=== PATIENT | female | born 1965 | race Caucasian/White ===

== ENCOUNTER → 2017-03-05 00:12 | Emergency (ER) | payer OTHER ==
[~2017-03-05 00:12] MED LIST: guaiFENesin LIQ* 100 MG/5 ML UDC PO ONE
[2017-03-05 00:42] LABS: Hematocrit 42 % (35-47); Hemoglobin 14.2 g/dl (12.0-16.0); Mean Corpuscular HGB Conc 34 g/dl (31-36); Mean Corpuscular Hemoglobin 30 pg (27-31); Mean Corpuscular Volume 87 fL (80-97); Mean Platelet Volume 8 um3 (7.4-10.4); Red Cell Distribution Width 13 % (10.5-15); White Blood Count 14.4 10^3/ul (3.5-10.8)
[2017-03-05 00:49] LABS: Add Diff/Slide Review? Slide Review Added; Comments Flag Yes
[2017-03-05 01:01] LABS: Albumin 4.3 g/dL (3.2-5.2); BUN/Creatinine Ratio 17.1 (8-20); Calcium 9.8 mg/dL (8.6-10.3); EGFR African American 102.4 (>60); EGFR Non-African American 79.6 (>60); Globulin 3.5 g/dL (2-4); Total Bilirubin 0.4 mg/dL (0.2-1.0); Total Protein 7.8 g/dL (6.4-8.9)
[2017-03-05 01:02] LABS: Potassium 4.2 mmol/L (3.5-5.0)
--- NOTE | 2017-03-05 01:48 | ED ---
Kirill Olivera Erika, scribed for Andres Banegas MD on 03/05/17 at 0039 . Shortness of Breath - HPI Summary HPI Summary: Patient is a 52-year-old female presenting to the ED with a CC of SOB. Patient reports she had some difficulty breathing last night, which subsided. This evening, SOB returned, and has been worsening and constant since. Patient also reports a cough. Symptoms were not alleviated by inhaler. She states recent shoulder surgery. Hx HTN, thyroid nodules. - History of Current Complaint Chief Complaint: EDShortnessOfBreath Time Seen by Provider: 03/05/17 00:18 Hx Obtained From: Patient Onset/Duration: Gradual Onset, Lasting Hours, Still Present Timing: Constant Current Severity: Moderate Dyspnea At: Rest Alleviating Factors: Nothing Associated Signs & Symptoms: Cough (Nonproductive) - Allergy/Home Medications Allergies/Adverse Reactions: Allergies Allergy/AdvReac Type Severity Reaction Status Date / Time Latex Allergy Severe RASH, Verified 08/29/16 10:36 SWELLING BERRIES Allergy Severe RASH, Uncoded 08/29/16 10:36 SWELLING, THROAT SWELLING PMH/Surg Hx/FS Hx/Imm Hx Endocrine/Hematology History: Reports: Hx Thyroid Disease Denies: Hx Diabetes Cardiovascular History: Reports: Hx Hypertension Respiratory History: Denies: Hx Asthma, Hx Chronic Obstructive Pulmonary Disease (COPD) GI History: Denies: Hx Ulcer - Cancer History Cancer Type, Location and Year: squamous cell skin cancer - Surgical History Surgery Procedure, Year, and Place: BLADDER SLING Infectious Disease History: Denies: Hx Hepatitis, Hx Human Immunodeficiency Virus (HIV) - Family History Known Family History: Positive: Hypertension - Social History Alcohol Use: Occasionally Hx Substance Use: No Substance Use Type: Reports: None Hx Tobacco Use: Yes Smoking Status (MU): Former Smoker Type: Cigarettes Amount Used/How Often: 7 CIG/DAY Review of Systems Negative: Fever Positive: Shortness Of Breath, Cough All Other Systems Reviewed And Are Negative: Yes Physical Exam Triage Information Reviewed: Yes Vital Signs On Initial Exam: Initial Vital Signs Temp 97.3 F 03/05/17 00:21 Pulse 115 03/05/17 00:21 Resp 30 03/05/17 00:21 BP 151/101 03/05/17 00:21 Pulse Ox 97 03/05/17 00:21 Vital Signs Reviewed: Yes Appearance: Positive: Well-Appearing, No Pain Distress Skin: Positive: Warm Head/Face: Positive: Normal Head/Face Inspection Eyes: Positive: EOMI, SHARI ENT: Positive: Hearing grossly normal, Pharynx normal Neck: Positive: Supple Respiratory/Lung Sounds: Positive: Clear to Auscultation, Breath Sounds Present Cardiovascular: Positive: RRR Abdomen Description: Positive: Nontender, Soft Bowel Sounds: Positive: Present Musculoskeletal: Positive: Strength/ROM Intact Neurological: Positive: Alert, Oriented to Person Place, Time, Normal Gait Psychiatric: Positive: Anxious Diagnostics - Vital Signs Vital Signs Temp Pulse Resp BP Pulse Ox 03/05/17 00:37 97.3 F 115 30 151/101 97 03/05/17 00:21 97.3 F 115 30 151/101 97 - Laboratory Lab Results: Lab Results 03/05/17 03/05/17 03/05/17 Range/Units 00:30 00:30 00:30 WBC 14.4 H (3.5-10.8) 10^3/ul RBC 4.80 (4.0-5.4) 10^6/ul Hgb 14.2 (12.0-16.0) g/dl Hct 42 (35-47) % MCV 87 (80-97) fL MCH 30 (27-31) pg MCHC 34 (31-36) g/dl RDW 13 (10.5-15) % Plt Count 305 (150-450) 10^3/ul MPV 8 (7.4-10.4) um3 Neut % (Auto) 50.3 (38-83) % Lymph % (Auto) 38.8 (25-47) % [place] % (Auto) 7.9 (1-9) % Eos % (Auto) 2.3 (0-6) % Baso % (Auto) 0.7 (0-2) % Absolute Neuts (auto) 7.2 (1.5-7.7) 10^3/ul Absolute Lymphs (auto) 5.6 H (1.0-4.8) 10^3/ul Absolute Monos (auto) 1.1 H (0-0.8) 10^3/ul Absolute Eos (auto) 0.3 (0-0.6) 10^3/ul Absolute Basos (auto) 0.1 (0-0.2) 10^3/ul Absolute Nucleated RBC 0.02 10^3/ul Nucleated RBC % 0.1 Hem Pathologist Commnt Pending D-Dimer, Quantitative < 200 (Less Than 230) ng/mL Sodium 136 (133-145) mmol/L Potassium 4.2 (3.5-5.0) mmol/L Chloride 102 (101-111) mmol/L Carbon Dioxide 25 (22-32) mmol/L Anion Gap 9 (2-11) mmol/L BUN 13 (6-24) mg/dL Creatinine 0.76 (0.51-0.95) mg/dL Est GFR ( Amer) 102.4 (>60) Est GFR (Non-Af Amer) 79.6 (>60) BUN/Creatinine Ratio 17.1 (8-20) Glucose 107 H (70-100) mg/dL Lactic Acid (0.5-2.0) mmol/L Calcium 9.8 (8.6-10.3) mg/dL Total Bilirubin 0.40 (0.2-1.0) mg/dL AST 26 (13-39) U/L ALT 25 (7-52) U/L Alkaline Phosphatase 64 (34-104) U/L Total Protein 7.8 (6.4-8.9) g/dL Albumin 4.3 (3.2-5.2) g/dL Globulin 3.5 (2-4) g/dL Albumin/Globulin Ratio 1.2 (1-3) 05/30/17 Range/Units 00:30 WBC (3.5-10.8) 10^3/ul RBC (4.0-5.4) 10^6/ul Hgb (12.0-16.0) g/dl Hct (35-47) % MCV (80-97) fL MCH (27-31) pg MCHC (31-36) g/dl RDW (10.5-15) % Plt Count (150-450) 10^3/ul MPV (7.4-10.4) um3 Neut % (Auto) (38-83) % Lymph % (Auto) (25-47) % [place] % (Auto) (1-9) % Eos % (Auto) (0-6) % Baso % (Auto) (0-2) % Absolute Neuts (auto) (1.5-7.7) 10^3/ul Absolute Lymphs (auto) (1.0-4.8) 10^3/ul Absolute Monos (auto) (0-0.8) 10^3/ul Absolute Eos (auto) (0-0.6) 10^3/ul Absolute Basos (auto) (0-0.2) 10^3/ul Absolute Nucleated RBC 10^3/ul Nucleated RBC % Hem Pathologist Commnt D-Dimer, Quantitative (Less Than 230) ng/mL Sodium (133-145) mmol/L Potassium (3.5-5.0) mmol/L Chloride (101-111) mmol/L Carbon Dioxide (22-32) mmol/L Anion Gap (2-11) mmol/L BUN (6-24) mg/dL Creatinine (0.51-0.95) mg/dL Est GFR ( Amer) (>60) Est GFR (Non-Af Amer) (>60) BUN/Creatinine Ratio (8-20) Glucose (70-100) mg/dL Lactic Acid 2.1 H* (0.5-2.0) mmol/L Calcium (8.6-10.3) mg/dL Total Bilirubin (0.2-1.0) mg/dL AST (13-39) U/L ALT (7-52) U/L Alkaline Phosphatase (34-104) U/L Total Protein (6.4-8.9) g/dL Albumin (3.2-5.2) g/dL Globulin (2-4) g/dL Albumin/Globulin Ratio (1-3) Result Diagrams: 03/05/17 00:30 03/05/17 00:30 Lab Statement: Any lab studies that have been ordered have been reviewed, and results considered in the medical decision making process. - Radiology CXR Xray Interpretation: No Acute Changes Radiology Interpretation Completed By: ED Physician - EKG 00:23 Cardiac Rate: Tachycardia - at 102 bpm EKG Rhythm: Sinus Tachycardia Re-Evaluation - Re-Evaluation First Eval Re-Evaluation Time: 02:31 Comment: Pt was road tested and O2 sat was 99-100. Discussed results with patient. Pt will be discharged Course/Dx - Course Assessment/Plan: A 52 y/o F presents to the ED with a CC of cough and SOB. Pt's O2 sat is 97% on arrival. Lab work obtained, D dimer <200. EKG shows sinus tachycardia. CXR shows no acute disease. Patient is observed in the ED. She is then road tested and has an O2 sat of 99-100% in road test. On re-evaluation, pt requests medication for the cough, so is prescribed robitussin. Pt is discharged home with follow up from her PCP. - Diagnoses Provider Diagnoses: URI (upper respiratory infection) Discharge - Discharge Plan Condition: Stable Disposition: HOME Prescriptions: guaiFENesin LIQ* [Robitussin*] 10 ml PO Q4H #10 [facility] [place] Patient Education Materials: Dyspnea (ED) Referrals: Олег Taylor MD [Primary Care Provider] - 2 Days Additional Instructions: Please follow up with your PCP The documentation as recorded by the Kirill mccoy Erika accurately reflects the service I personally performed and the decisions made by me, Andres Banegas MD.
[2017-03-05 02:54] VITALS: BP 147/65
--- NOTE | 2017-03-05 07:49 | RAD ---
INDICATION: Shortness of breath. COMPARISON: Comparison is made with a prior chest x-ray study from January 11, 2012. TECHNIQUE: Dual-energy PA and lateral views of the chest were obtained. FINDINGS: The heart is within normal limits in size. Mediastinal and hilar contours appear within normal limits. The lungs are clear. No pleural effusion is present. IMPRESSION: NO EVIDENCE FOR ACTIVE CARDIOPULMONARY DISEASE.
== END | disposition home or self-care (01) ==
LOC: ED 00:12
DX: J06.9 Acute upper respiratory infection, unspecified (principal); R06.02 Shortness of breath; R05 Cough; Z87.891 Personal history of nicotine dependence
CPT/HCPCS: 36415; 71020; 80053; 83605; 85025; 85060; 85379; 93005; 99282; A9270-GY

== ENCOUNTER 2018-02-22 17:01 | Emergency (ER) | payer OTHER ==
[2018-02-22 18:03] LABS: ABS Basophils 0.1 10^3/ul (0-0.2); ABS Eosinophils 0.2 10^3/ul (0-0.6); ABS Lymphocytes 4.3 10^3/ul (1.0-4.8); ABS Monocytes 0.9 10^3/ul (0-0.8); ABS Neutrophils 7.8 10^3/ul (1.5-7.7); ABS Nucleated RBC 0 10^3/ul; Eosinophil % 1.6 % (0-6); Hematocrit 42 % (35-47); Hemoglobin 14.6 g/dl (12.0-16.0); Lymphocyte % 32.2 % (25-47); Mean Corpuscular HGB Conc 35 g/dl (31-36); Mean Corpuscular Hemoglobin 30 pg (27-31); Mean Corpuscular Volume 88 fL (80-97); Mean Platelet Volume 8.1 um3 (7.4-10.4); Nucleated Red Blood Cells % 0.1; Platelet Count 345 10^3/ul (150-450); Red Cell Distribution Width 14 % (10.5-15); White Blood Count 13.2 10^3/ul (3.5-10.8)
[2018-02-22 18:15] LABS: EGFR Non-African American 73.7 (>60)
--- NOTE | 2018-02-22 18:40 | RAD ---
HISTORY: Chest wall pain, difficulty breathing COMPARISONS: March 05, 2017 VIEWS: 6, Frontal view of the chest with frontal and oblique views of the left hemithorax FINDINGS: There is no displaced rib fracture or pneumothorax. The visualized lungs are clear. IMPRESSION: NO DISPLACED RIB FRACTURE OR PNEUMOTHORAX.
[2018-02-22] MEDS ORDERED: Ketorolac INJ* 30 MG/ML 1 ML VIAL IV PUSH ONE (20:17)
--- NOTE | 2018-02-22 20:51 | RAD ---
HISTORY: Right-sided flank pain and chest wall pain COMPARISONS: CT chest dated December 19, 2014 TECHNIQUE: Multiple contiguous axial CT scans were obtained of the chest, abdomen, and pelvis, without intravenous contrast enhancement. Coronal and sagittal multiplanar reformations are submitted for review.. Oral contrast was not administered. FINDINGS: The study is limited by the lack of intravenous contrast. This limits evaluation of the solid organs and vasculature. CHEST NECK AND THYROID: The thyroid is heterogeneous with a 3.1 cm nodule of the left lower thyroid. This is similar to the 2015 examination CHEST WALL: There is no lower cervical, axillary, or supraclavicular lymphadenopathy by size criteria. HEART AND PERICARDIUM: The heart is unremarkable. AORTA AND PULMONARY VASCULATURE: The aorta and pulmonary vasculature are normal. MEDIASTINUM: There is no mediastinal lymphadenopathy by size criteria. CHUY: There is no hilar lymphadenopathy by size criteria. AIRWAY AND ESOPHAGUS: The airway is unremarkable, without endobronchial filling defect. The esophagus is grossly normal. LUNG PARENCHYMA: The lungs are clear. PLEURA: No pleural abnormalities are noted. BONES AND SOFT TISSUES: No bone or soft tissue abnormalities are noted. ABDOMEN/PELVIS: LIVER: The liver is normal in shape, size, contour, and attenuation. BILE DUCTS: There is no intrahepatic or extrahepatic biliary dilatation. GALLBLADDER: The gallbladder is normal, without pericholecystic inflammatory change. PANCREAS: The pancreas is normal, without mass or ductal dilatation. SPLEEN: Normal in size and appearance. UPPER GI TRACT: Evaluation of the gastrointestinal tract is limited by incomplete gastric distention. The upper GI tract is unremarkable. SMALL BOWEL & MESENTERY: The small bowel is normal in contour, course, and caliber. There is no obstruction or dilatation. COLON: The colon is normal in contour, course, caliber. There is no pericolonic inflammatory change. ADRENALS: Normal bilaterally. KIDNEYS: The kidneys are normal in shape, size, contour, and axis. There is no hydronephrosis or nephrolithiasis. BLADDER: The bladder is smooth in contour. PELVIC ORGANS: The uterus and adnexa are grossly normal for technique. AORTA: There is calcific atherosclerotic disease of the abdominal aorta and its branches, without aneurysmal dilatation IVC: Unremarkable LYMPH NODES: There is no lymphadenopathy by size criteria. ABDOMINAL WALL: There is no evidence for abdominal wall hernia. BONES AND SOFT TISSUES: Degenerative changes are noted most pronounced at L5-S1 OTHER: None IMPRESSION: 1. ATHEROSCLEROSIS. 2. MULTINODULAR GOITER. 3. NO HYDRONEPHROSIS OR NEPHROLITHIASIS. 4. NO ACUTE NONCONTRAST CT PATHOLOGY OF THE CHEST, ABDOMEN, OR PELVIS.
[2018-02-22] MEDS ORDERED: Ondansetron ODT TAB* 4 MG ONE (21:22)
[2018-02-22] MEDS ORDERED: Ondansetron INJ* 2 MG/ML VIAL IV ONE (21:23)
[2018-02-22 21:57] LABS: Urine Appearance Clear; Urine Blood 1+ (Negative); Urine Color Yellow; Urine Ketones Negative (Negative); Urine Protein Negative (Negative); Urine Urobilinogen Negative (Negative)
[2018-02-22 22:25] VITALS: BP 132/74
--- NOTE | 2018-02-22 22:32 | ED ---
Mathew Olivera Jennifer, scribed for Keagan Cruz MD on 02/22/18 at 1735 . Complex/Multi-Sys Presentation - HPI Summary HPI Summary: The patient is a 53 year old female who presents with vomiting, nausea, shortness of breath, and vaginal bleeding beginning two days ago. The patient reports it began with vomiting two nights ago. Yesterday, she developed nausea, bloating, lightheadedness, severe back left rib pain, and shortness of breath. The patient states that coughing and deep breaths worsen the rib pain. She then reports she experiences vaginal bleeding this morning and has lost seven pounds this last week. The patients head and throat hurts from the vomiting. She describes the rib pain as a shooting pain that feels heavy from the left rib to the spine but denies radiation of pain. Patient denies hematuria, swelling or redness of the legs, and any falls. - History Of Current Complaint Chief Complaint: EDShortnessOfBreath Hx Obtained From: Patient Onset/Duration: Sudden Onset, Lasting Days - two days ago Timing: Constant Severity Currently: Moderate Severity Initially: Moderate Character: Sharp - shooting/heavy Aggravating Factor(s): coughing, deep breaths Alleviating Factor(s): None Associated Signs And Symptoms: Positive: Other - vomiting, nausea, SOB, vaginal bleeding, bloating, lightheadedness, left back rib pain, weight loss, head pain , throat pain. NEGATIVE: hematuria, swelling or redness of the legs, falls. - Allergies/Home Medications Allergies/Adverse Reactions: Allergies Allergy/AdvReac Type Severity Reaction Status Date / Time latex Allergy Rash Verified 02/22/18 17:02 peanut Allergy Hives Verified 02/22/18 17:28 BERRIES Allergy Severe RASH, Uncoded 02/22/18 17:02 SWELLING, THROAT SWELLING cantoloupe Allergy Anaphylatic Uncoded 02/22/18 17:28 Shock mayonnaise Allergy Anaphylatic Uncoded 02/22/18 17:26 Shock PMH/Surg Hx/FS Hx/Imm Hx Endocrine/Hematology History: Reports: Hx Thyroid Disease Denies: Hx Diabetes Cardiovascular History: Reports: Hx Hypertension Respiratory History: Denies: Hx Asthma, Hx Chronic Obstructive Pulmonary Disease (COPD) GI History: Denies: Hx Ulcer - Cancer History Cancer Type, Location and Year: squamous cell skin cancer - Surgical History Surgery Procedure, Year, and Place: BLADDER SLING - Immunization History Immunizations Up to Date: Yes Infectious Disease History: No Infectious Disease History: Denies: Hx Hepatitis, Hx Human Immunodeficiency Virus (HIV), Traveled Outside the [place] in Last 30 Days - Family History Known Family History: Positive: Hypertension - Social History Alcohol Use: Occasionally Hx Substance Use: No Substance Use Type: Reports: None Hx Tobacco Use: Yes Smoking Status (MU): Former Smoker - Quit two years ago Type: Cigarettes Amount Used/How Often: 7 CIG/DAY Review of Systems Positive: Other - Recent weight loss Positive: Sore Throat Positive: Shortness Of Breath, Cough Positive: Vomiting, Nausea, Other - Bloating Genitourinary: Other - Vaginal bleeding Negative: hematuria Musculoskeletal: Other - Left back rib pain Negative: Edema Neurological: Negative - Falls, Other - Lightheadedness Positive: Headache All Other Systems Reviewed And Are Negative: Yes Physical Exam - Summary Physical Exam Summary: Appearance: Well-appearing, Well-nourished Skin: Warm, Non dermatomal pattern. Eyes: Normal ENT: Normal Neck: Supple, nontender Respiratory: Clear to auscultation, good breath sounds on both sides. No crepitus. Cardiovascular: Normal S1, S2. No murmurs. Normal distal pulses in tibial and radial bilaterally. Abdomen: Soft, nontender Musculoskeletal: Exquisite tenderness to palpation of left posterior rib cage. Strength/ROM Intact Neurological: Normal, A&Ox3 Psychiatric: Normal General: No acute distress Triage Information Reviewed: Yes Vital Signs On Initial Exam: Initial Vitals Temp Pulse Resp BP Pulse Ox 98.6 F 85 22 156/95 96 02/22/18 17:05 02/22/18 17:05 02/22/18 17:05 02/22/18 17:05 02/22/18 17:05 Vital Signs Reviewed: Yes Diagnostics - Vital Signs Vital Signs Temp Pulse Resp BP Pulse Ox 02/22/18 17:05 98.6 F 85 22 156/95 96 - Laboratory Lab Results: Lab Results 02/22/18 02/22/18 02/22/18 Range/Units 17:49 17:49 17:49 WBC 13.2 H (3.5-10.8) 10^3/ul RBC 4.80 (4.0-5.4) 10^6/ul Hgb 14.6 (12.0-16.0) g/dl Hct 42 (35-47) % MCV 88 (80-97) fL MCH 30 (27-31) pg MCHC 35 (31-36) g/dl RDW 14 (10.5-15) % Plt Count 345 (150-450) 10^3/ul MPV 8.1 (7.4-10.4) um3 Neut % (Auto) 59.1 (38-83) % Lymph % (Auto) 32.2 (25-47) % [place] % (Auto) 6.6 (0-7) % Eos % (Auto) 1.6 (0-6) % Baso % (Auto) 0.5 (0-2) % Absolute Neuts (auto) 7.8 H (1.5-7.7) 10^3/ul Absolute Lymphs (auto) 4.3 (1.0-4.8) 10^3/ul Absolute Monos (auto) 0.9 H (0-0.8) 10^3/ul Absolute Eos (auto) 0.2 (0-0.6) 10^3/ul Absolute Basos (auto) 0.1 (0-0.2) 10^3/ul Absolute Nucleated RBC 0 10^3/ul Nucleated RBC % 0.1 D-Dimer, Quantitative (Less Than 230) ng/mL Sodium 136 L (139-145) mmol/L Potassium 5.0 (3.5-5.0) mmol/L Chloride 101 (101-111) mmol/L Carbon Dioxide 28 (22-32) mmol/L Anion Gap 7 (2-11) mmol/L BUN 17 (6-24) mg/dL Creatinine 0.81 (0.51-0.95) mg/dL Est GFR ( Amer) 94.8 (>60) Est GFR (Non-Af Amer) 73.7 (>60) BUN/Creatinine Ratio 21.0 H (8-20) Glucose 115 H (70-100) mg/dL Lactic Acid 0.9 (0.5-2.0) mmol/L Calcium 9.3 (8.6-10.3) mg/dL Magnesium 2.3 (1.9-2.7) mg/dL Total Bilirubin 0.30 (0.2-1.0) mg/dL AST 18 (13-39) U/L ALT 16 (7-52) U/L Alkaline Phosphatase 86 (34-104) U/L Troponin I 0.00 (<0.04) ng/mL Total Protein 8.1 (6.4-8.9) g/dL Albumin 4.4 (3.2-5.2) g/dL Globulin 3.7 (2-4) g/dL Albumin/Globulin Ratio 1.2 (1-3) Beta HCG, Quant 6.63 mIU/mL Urine Color Urine Appearance Urine pH (5-9) Ur Specific [place] (1.010-1.030) Urine Protein (Negative) Urine Ketones (Negative) Urine Blood (Negative) Urine Nitrate (Negative) Urine Bilirubin (Negative) Urine Urobilinogen (Negative) Ur Leukocyte Esterase (Negative) Urine WBC (Auto) (Absent) Urine RBC (Auto) (Absent) Ur Squamous Epith Cells (Absent) Urine Bacteria (Absent) Urine Glucose (Negative) 02/22/18 02/22/18 Range/Units 17:49 21:27 WBC (3.5-10.8) 10^3/ul RBC (4.0-5.4) 10^6/ul Hgb (12.0-16.0) g/dl Hct (35-47) % MCV (80-97) fL MCH (27-31) pg MCHC (31-36) g/dl RDW (10.5-15) % Plt Count (150-450) 10^3/ul MPV (7.4-10.4) um3 Neut % (Auto) (38-83) % Lymph % (Auto) (25-47) % [place] % (Auto) (0-7) % Eos % (Auto) (0-6) % Baso % (Auto) (0-2) % Absolute Neuts (auto) (1.5-7.7) 10^3/ul Absolute Lymphs (auto) (1.0-4.8) 10^3/ul Absolute Monos (auto) (0-0.8) 10^3/ul Absolute Eos (auto) (0-0.6) 10^3/ul Absolute Basos (auto) (0-0.2) 10^3/ul Absolute Nucleated RBC 10^3/ul Nucleated RBC % D-Dimer, Quantitative < 200 (Less Than 230) ng/mL Sodium (139-145) mmol/L Potassium (3.5-5.0) mmol/L Chloride (101-111) mmol/L Carbon Dioxide (22-32) mmol/L Anion Gap (2-11) mmol/L BUN (6-24) mg/dL Creatinine (0.51-0.95) mg/dL Est GFR ( Amer) (>60) Est GFR (Non-Af Amer) (>60) BUN/Creatinine Ratio (8-20) Glucose (70-100) mg/dL Lactic Acid (0.5-2.0) mmol/L Calcium (8.6-10.3) mg/dL Magnesium (1.9-2.7) mg/dL Total Bilirubin (0.2-1.0) mg/dL AST (13-39) U/L ALT (7-52) U/L Alkaline Phosphatase (34-104) U/L Troponin I (<0.04) ng/mL Total Protein (6.4-8.9) g/dL Albumin (3.2-5.2) g/dL Globulin (2-4) g/dL Albumin/Globulin Ratio (1-3) Beta HCG, Quant mIU/mL Urine Color Yellow Urine Appearance Clear Urine pH 5.0 (5-9) Ur Specific [place] 1.020 (1.010-1.030) Urine Protein Negative (Negative) Urine Ketones Negative (Negative) Urine Blood 1+ A (Negative) Urine Nitrate Negative (Negative) Urine Bilirubin Negative (Negative) Urine Urobilinogen Negative (Negative) Ur Leukocyte Esterase Trace A (Negative) Urine WBC (Auto) Trace(0-5/hpf) (Absent) Urine RBC (Auto) Trace(0-2/hpf) (Absent) Ur Squamous Epith Cells Present A (Absent) Urine Bacteria Absent (Absent) Urine Glucose Negative (Negative) Result Diagrams: 02/22/18 17:49 02/22/18 17:49 Lab Statement: Any lab studies that have been ordered have been reviewed, and results considered in the medical decision making process. - Radiology Ribs with Chest XR Xray Interpretation: No Acute Changes - NO DISPLACED RIB FRACTURE OR PNEUMOTHORAX. Dr. Cruz has reviewed this report. Radiology Interpretation Completed By: Radiologist - CT CT Chest/Abdomen/Pelvis CT Interpretation: No Acute Changes - 1. ATHEROSCLEROSIS. 2. MULTINODULAR GOITER. 3. NO HYDRONEPHROSIS OR NEPHROLITHIASIS. 4. NO ACUTE NONCONTRAST CT PATHOLOGY OF THE CHEST, ABDOMEN, OR PELVIS. Dr. Cruz has reviewed this report. CT Interpretation Completed By: Radiologist - EKG 1809 Cardiac Rate: NL EKG Rhythm: Sinus Rhythm - [address] Segment: Normal Complex Multi-Symp Course/Dx Assessment/Plan: No evidence of acute abnormality on x-ray, labs, or CT. Patient feels better after anti-inflammatory medications in the emergency department, pain may be from musculoskeletal origin. Given perception for antiemetics and anti-inflammatories, instructed to follow up with primary care physician and to return to the ED for any worsening or symptoms concerning symptoms. Agrees to and understands discharge instructions. - Diagnoses Provider Diagnoses: Flank pain Discharge - Sign-Out/Discharge Documenting (check all that apply): Discharge/Admit/Transfer - Discharge Plan Condition: Improved Disposition: HOME Prescriptions: Ketorolac TAB * [Toradol TAB *] 10 mg PO Q8H PRN #10 tab PRN Reason: Pain - Moderate To Severe Ondansetron ODT TAB* [Zofran 4 MG Odt TAB*] 4 mg PO Q6H PRN #10 tab.odt PRN Reason: Nausea Patient Education Materials: Flank Pain (ED) Referrals: Vignesh Robles MD [Primary Care Provider] - Additional Instructions: PLEASE RETURN TO THE EMERGENCY ROOM IF YOU HAVE ANY WORSENING OR CONCERNING SYMPTOMS PLEASE MAKE AN APPOINTMENT FIRST THING IN THE MORNING TO BE SEEN BY YOUR PRIMARY CARE DOCTOR WITHIN 1 WEEK - Billing Disposition and Condition Condition: IMPROVED Disposition: HOME The documentation as recorded by the Mathew mccoy Jennifer accurately reflects the service I personally performed and the decisions made by me, Keagan Cruz MD.
== END 2018-02-22 22:17 | disposition home or self-care (01) ==
LOC: ED 17:01
DX: R10.9 Unspecified abdominal pain (principal); R06.02 Shortness of breath; R07.81 Pleurodynia; I70.0 Atherosclerosis of aorta; E04.2 Nontoxic multinodular goiter; Z87.891 Personal history of nicotine dependence
CPT/HCPCS: 36415; 71250; 74176; 80053; 81003; 81015; 83605; 83735; 84484; 84702; 85025; 85379; 87086; 93005; 96374; 96375; 99283; A9270-GY; J1885

== ENCOUNTER 2018-09-28 01:46 | Emergency (ER) | payer OTHER ==
[2018-09-28] MEDS ORDERED: guaiFENesin/CODIEN 100MG-10MG* 5 ML UDC PO ONE ×2 (02:05→02:52)
--- NOTE | 2018-09-28 02:20 | ED ---
Influenza-Like Illness - HPI Summary HPI Summary: A 53 y/o female accompanied by her presents to the ED c/o consistent cough. Currently, the patient cannot stop coughing to the point where she cannot sleep. As per triage, "Pt c/o intermittent cough for just over one week. Pt states the last 2 days she has a persistant cough with fever yesterday". According to the patient, she has been experiencing a terrible cough that has been present since last (09/25/2018). She stated that she had flem yesterday twice and she was also sneezing, however there was no flem today. She noted that she cannot sleep because she can't stop coughing, nonstop. She stated that she is now having a little bit of chest pain with SOB. She also gets dizzy and lightheaded every time she bends down. PMHx of a thyoid issue. SHx of former smoker (2.5 years ago). - History of Current Complaint Chief Complaint: EDUpperRespComplaint Time Seen by Provider: 09/28/18 01:59 Hx Obtained From: Patient Onset/Duration: Sudden Onset, Lasting Days, Still Present Associated Signs & Symptoms: Cough - Allergy/Home Medications Allergies/Adverse Reactions: Allergies Allergy/AdvReac Type Severity Reaction Status Date / Time latex Allergy Rash Verified 09/28/18 01:51 peanut Allergy Hives Verified 09/28/18 01:51 BERRIES Allergy Severe RASH, Uncoded 09/28/18 01:51 SWELLING, THROAT SWELLING cantoloupe Allergy Anaphylatic Uncoded 09/28/18 01:51 Shock mayonnaise Allergy Anaphylatic Uncoded 09/28/18 01:51 Shock Home Medications: Home Medications Lisinopril 10 mg PO DAILY 09/28/18 [History Confirmed 09/28/18] traZODone TAB* [Desyrel TAB*] 50 mg PO BEDTIME PRN 09/28/18 [History Confirmed 09/28/18] PMH/Surg Hx/FS Hx/Imm Hx Endocrine/Hematology History: Reports: Hx Thyroid Disease Denies: Hx Diabetes Cardiovascular History: Reports: Hx Hypertension Respiratory History: Denies: Hx Asthma, Hx Chronic Obstructive Pulmonary Disease (COPD) GI History: Denies: Hx Ulcer - Cancer History Cancer Type, Location and Year: squamous cell skin cancer - Surgical History Surgery Procedure, Year, and Place: BLADDER SLING Infectious Disease History: No Infectious Disease History: Denies: Hx Hepatitis, Hx Human Immunodeficiency Virus (HIV), Traveled Outside the [place] in Last 30 Days - Family History Known Family History: Positive: Hypertension - Social History Alcohol Use: Occasionally Hx Substance Use: No Substance Use Type: Reports: None Hx Tobacco Use: Yes Smoking Status (MU): Former Smoker Type: Cigarettes Amount Used/How Often: 7 CIG/DAY Review of Systems Negative: Fever Positive: Chest Pain Positive: Shortness Of Breath, Cough Neurological: Other - POSITIVE: LIGHTHEADEDNESS AND DIZZINESS All Other Systems Reviewed And Are Negative: Yes Physical Exam - Summary Physical Exam Summary: Appearance: Well appearing, no pain distress. Normal exam. Skin: warm, dry, reflects adequate perfusion Head/face: normal Eyes: EOMI, SHARI ENT: normal Neck: supple, non-tender Respiratory: CTA, breath sounds present Cardiovascular: RRR, pulses symmetrical Abdomen: non-tender, soft Musculoskeletal: normal, strength/ROM intact Neuro: normal, sensory motor intact, A&Ox3 Triage Information Reviewed: Yes Vital Signs On Initial Exam: Initial Vitals Temp Pulse Resp BP Pulse Ox 96.6 F 100 18 155/86 100 09/28/18 01:47 09/28/18 01:47 09/28/18 01:47 09/28/18 01:47 09/28/18 01:47 Vital Signs Reviewed: Yes Diagnostics - Vital Signs Vital Signs Temp Pulse Resp BP Pulse Ox 09/28/18 02:04 98 97 09/28/18 01:47 96.6 F 100 18 155/86 100 - Laboratory Lab Statement: Any lab studies that have been ordered have been reviewed, and results considered in the medical decision making process. - Radiology CXR Radiology Interpretation Completed By: ED Physician Summary of Radiographic Findings: NO ACUTE INFILTRATE. PENDING OFFICIAL REPORT. Flu Symptom Course/Dx - Course Course Of Treatment: A 53 y/o female accompanied by her presents to the ED c/o consistent cough. Currently, the patient cannot stop coughing to the point where she cannot sleep. According to the patient, she has been experiencing a terrible cough that has been present since last (2017). She stated that she had flem yesterday twice and she was also sneezing, however there was no flem today. She noted that she cannot sleep because she can 't stop coughing, nonstop. She stated that she is now having a little bit of chest pain with SOB. She also gets dizzy and lightheaded every time she bends down. Physical examination was unremarkable. A CXR revealed no acute infiltrate. No laboratory screens were done. In the ED course, the patient received Zithromax, Tessalon, and Robitussin. Patient will be discharged with a diagnosis of bronchitis and cough. Patient will be sent home with a prescriptions for Zithromax, Tessalon, and Robitussin and is to take medications as prescribed. Patient is to follow up with primary care provider in 2-3 days. Patient is to return to ED for any new or worsening symptoms. Patient is agreeable with this plan. - Diagnoses Differential Diagnosis/HQI/PQRI: Positive: Bronchitis, Pneumonia, Upper Respiratory Infection Provider Diagnoses: Bronchitis, Cough Discharge - Sign-Out/Discharge Documenting (check all that apply): Patient Departure - DISCHARGE - Discharge Plan Condition: Stable Disposition: HOME Prescriptions: Azithromycin TAB* [Zithromax TAB (Z-JOSE) 250 mg #6 tabs] 250 mg PO DAILY #4 tab Benzonatate CAP* [Tessalon 100 MG CAP*] 100 mg PO TID PRN #15 cap MDD 3 PRN Reason: Cough guaiFENesin/CODIEN 100MG-10MG* [Robitussin AC 100Mg-10Mg*] 5 ml PO TID 1 Days # 1 udc MDD 3 Patient Education Materials: Acute Bronchitis (ED), Acute Cough (ED) Referrals: Vignesh Robles MD [Primary Care Provider] - 3 Days Additional Instructions: TAKE MEDICATIONS PRESCRIBED. FOLLOW UP WITH PRIMARY CARE PROVIDER IN 2-3 DAYS. RETURN TO ED FOR ANY NEW OR WORSENING SYMPTOMS. - Billing Disposition and Condition Condition: STABLE Disposition: Home - Attestation Statements Document Initiated by Hanyibe: Yes Documenting Scribe: Kushal Wheeler Provider For Whom Mike is Documenting (Include Credential): John Rosado MD Scribe Attestation: Kushal Olivera scribed for John Rosado MD on 09/28/18 at 0303. Scribe Documentation Reviewed: Yes Provider Attestation: The documentation as recorded by the Kushal mccoy accurately reflects the service I personally performed and the decisions made by me, John Rosado MD Status of Scribe Document: Viewed
[2018-09-28] MEDS ORDERED: Azithromycin TAB* 250 MG PO ONE (02:49)
[2018-09-28] MEDS ORDERED: Benzonatate CAP* 100 MG PO ONE (02:52)
[2018-09-28 03:31] VITALS: BP 148/99
== END 2018-09-28 03:15 | disposition home or self-care (01) ==
LOC: ED 01:46
DX: J40 Bronchitis, not specified as acute or chronic (principal); E07.9 Disorder of thyroid, unspecified; I10 Essential (primary) hypertension; Z85.828 Personal history of other malignant neoplasm of skin; Z87.891 Personal history of nicotine dependence
CPT/HCPCS: 71046; 99283; A9270-GY